=== PATIENT | female | born 1965 | race Caucasian/White ===

== ENCOUNTER 2019-08-31 22:18 | Emergency (ER) | payer OTHER ==
[2019-08-31] MEDS ORDERED: HYDROCODONE/APAP 10/325 TAB ONE (23:29)
[2019-08-31] MEDS ORDERED: DIAZEPAM 5 MG TABLET ONE (23:30)
[2019-08-31] MEDS ORDERED: KETOROLAC 30 MG/ML INJ ONE (23:30)
--- NOTE | 2019-09-01 00:28 | ER ---
Nurse's Notes [facility] Camila Name: Denny Burton Age: 54 yrs Sex: Female : 1965 Arrival Date: 08/31/2019 Time: 22:23 Bed X-Ray Private MD: Diagnosis: Fall due to bumping against object;Contusion of left hip;Low back pain;Bipolar disorder Presentation: 08/31 22:47 Presenting complaint: Patient states: in the process of moving, 2 days ago slipped and iw fell on left lower back, has had pain since then, can;t sleep. Transition of care: patient was not received from another setting of care. Onset of symptoms was August 29, 2019. Risk Assessment: Do you want to hurt yourself or someone else? Patient reports no desire to harm self or others. Initial Sepsis Screen: Does the patient meet any 2 criteria? No. Patient's initial sepsis screen is negative. Does the patient have a suspected source of infection? No. Patient's initial sepsis screen is negative. Care prior to arrival: None. 22:47 Method Of Arrival: Ambulatory iw 22:47 Acuity: BILL 4 iw Historical: - Allergies: 22:50 Codeine; iw 22:50 Sulfa (Sulfonamide Antibiotics); iw 22:50 Lyrica; iw 22:50 Methotrexate; iw 22:50 Remicade; iw - PMHx: 22:50 RA; Anxiety; Bipolar disorder; iw - PSHx: 22:50 Hysterectomy; Cholecystectomy; breast augmentation; keft ankle; dayanna shoulder; dayanna iw wrist; cervical fusion; - Immunization history:: Adult Immunizations up to date. - Coronavirus screen:: The patient has NOT traveled to [place], [place], or [place] in the past 14 days. Proceed with normal triage process as indicated. - Social history:: Smoking status: Patient denies any tobacco usage or history of. - Family history:: not pertinent. - Ebola Screening: : Patient negative for fever greater than or equal to 101.5 degrees Fahrenheit, and additional compatible Ebola Virus Disease symptoms Patient denies exposure to infectious person Patient denies travel to an Ebola-affected area in the 21 days before illness onset No symptoms or risks identified at this time. Screenin:54 Abuse screen: Denies threats or abuse. Denies injuries from another. Nutritional iw screening: No deficits noted. Tuberculosis screening: No symptoms or risk factors identified. Fall Risk Fall in past 12 months (25 points). Assessment: 22:53 General: Appears in no apparent distress. Behavior is calm, cooperative. Pain: iw Complains of pain in back Pain radiates to left leg. Neuro: Level of Consciousness is awake, alert, obeys commands, Oriented to person, place, time, situation, Moves all extremities. Full function. Cardiovascular: Patient's skin is warm and dry. Respiratory: Respiratory effort is even, unlabored, Respiratory pattern is regular. Derm: Skin is intact, is healthy with good turgor. Musculoskeletal: Range of motion: intact in all extremities. Vital Signs: 22:50 BP 105 / 68; Pulse 74; Resp 16; Temp 98.0; Pulse Ox 98% on R/A; Weight 58.97 kg; Height iw 5 ft. 2 in. (157.48 cm); Pain 8/10; 22:50 Body Mass Index 23.78 (58.97 kg, 157.48 cm) iw ED Course: 22:23 Patient arrived in ED. jg7 22:48 Triage completed. iw 22:50 Arm band placed on. iw 22:53 Cristina Fernandez, RN is Primary Nurse. iw 22:54 Patient has correct armband on for positive identification. iw 22:54 No provider procedures requiring assistance completed. Patient did not have IV access iw during this emergency room visit. 23:00 Lucien Wolf MD is Attending Physician. [facility] 09/01 00:18 Pelvis XRAY In Process Unspecified. EDMS 00:18 Lumbar Spine (3 Views) XRAY In Process Unspecified. EDMS 00:18 Hip Left 2 View XRAY In Process Unspecified. EDMS 00:28 Jorge Camara MD is Referral Physician. matthew Administered Medications: 08/31 23:35 Drug: [place] 10 mg-325 mg 1 tabs Route: PO; ls4 23:35 Drug: Valium 5 mg Route: PO; ls4 23:35 Drug: TORadol 60 mg Route: IM; Site: right deltoid; ls4 Outcome: 09/01 00:28 Discharge ordered by . matthew 01:03 Discharged to home ambulatory, with family. iw 01:03 Condition: good 01:03 Discharge instructions given to patient, Instructed on discharge instructions, follow up and referral plans. medication usage, Demonstrated understanding of instructions, follow-up care, medications, Prescriptions given X 2. 01:04 Patient left the ED. iw Signatures: Dispatcher [employer] EDLucien Dawson MD MD cha Williams, Irene, RN RN iw Stewart, Lisa, RN RN ls4 Celeste Bhandari
--- NOTE | 2019-09-01 00:28 | EDPHYS ---
Physician Documentation [facility] Camila Name: Denny Burton Age: 54 yrs Sex: Female : 1965 Arrival Date: 08/31/2019 Time: 22:23 Bed X-Ray Private MD: ED Physician Lucien Wolf HPI: 08/31 23:23 This 54 yrs old Female presents to ER via Ambulatory with complaints of Hip matthew Pain. 23:23 The patient or guardian reports decreased range of motion, pain. that occurred at an [facility] unknown site, sustained from a fall, There is no obvious deformity, The patient is able to self ambulate. The patient is able to bear their full body weight. The patient's discomfort radiates to the left lower back and left gluteus herbert. The complaints affect the buttocks, left femoral area and left hip. Onset: The symptoms/episode began/occurred 2 day(s) ago. Modifying factors: The symptoms are alleviated by remaining still, the symptoms are aggravated by any movement. Associated signs and symptoms: Loss of consciousness: the patient experienced no loss of consciousness, Pertinent positives: None. Severity of symptoms: At their worst the symptoms were mild, moderate, in the emergency department the symptoms are unchanged. The patient has experienced similar episodes in the past, a few times. Historical: - Allergies: 22:50 Codeine; iw 22:50 Sulfa (Sulfonamide Antibiotics); iw 22:50 Lyrica; iw 22:50 Methotrexate; iw 22:50 Remicade; iw - PMHx: 22:50 RA; Anxiety; Bipolar disorder; iw - PSHx: 22:50 Hysterectomy; Cholecystectomy; breast augmentation; keft ankle; dayanna shoulder; dayanna iw wrist; cervical fusion; - Immunization history:: Adult Immunizations up to date. - Coronavirus screen:: The patient has NOT traveled to [place], [place], or [place] in the past 14 days. Proceed with normal triage process as indicated. - Social history:: Smoking status: Patient denies any tobacco usage or history of. - Family history:: not pertinent. - Ebola Screening: : Patient negative for fever greater than or equal to 101.5 degrees Fahrenheit, and additional compatible Ebola Virus Disease symptoms Patient denies exposure to infectious person Patient denies travel to an Ebola-affected area in the 21 days before illness onset No symptoms or risks identified at this time. ROS: 23:23 Constitutional: Negative for fever, chills, and weight loss, Eyes: Negative for injury, matthew pain, redness, and discharge, ENT: Negative for injury, pain, and discharge, Neck: Negative for injury, pain, and swelling, Cardiovascular: Negative for chest pain, palpitations, and edema, Respiratory: Negative for shortness of breath, cough, wheezing, and pleuritic chest pain, Abdomen/GI: Negative for abdominal pain, nausea, vomiting, diarrhea, and constipation, : Negative for injury, bleeding, discharge, and swelling, Skin: Negative for injury, rash, and discoloration, Neuro: Negative for headache, weakness, numbness, tingling, and seizure, Psych: Negative for depression, anxiety, suicide ideation, homicidal ideation, and hallucinations, Allergy/Immunology: Negative for hives, rash, and allergies, Endocrine: Negative for neck swelling, polydipsia, polyuria, polyphagia, and marked weight changes, Hematologic/Lymphatic: Negative for swollen nodes, abnormal bleeding, and unusual bruising. 23:23 Back: Positive for decreased range of motion, pain at rest, pain with movement, of the lumbar area and left low back. Exam: 23:23 Constitutional: This is a well developed, well nourished patient who is awake, alert, matthew and in no acute distress. Head/Face: Normocephalic, atraumatic. Eyes: Pupils equal round and reactive to light, extra-ocular motions intact. Lids and lashes normal. Conjunctiva and sclera are non-icteric and not injected. Cornea within normal limits. Periorbital areas with no swelling, redness, or edema. ENT: Nares patent. No nasal discharge, no septal abnormalities noted. Tympanic membranes are normal and external auditory canals are clear. Oropharynx with no redness, swelling, or masses, exudates, or evidence of obstruction, uvula midline. Mucous membranes moist. Neck: Trachea midline, no thyromegaly or masses palpated, and no cervical lymphadenopathy. Supple, full range of motion without nuchal rigidity, or vertebral point tenderness. No Meningismus. Chest/axilla: Normal chest wall appearance and motion. Nontender with no deformity. No lesions are appreciated. Cardiovascular: Regular rate and rhythm with a normal S1 and S2. No gallops, murmurs, or rubs. Normal PMI, no JVD. No pulse deficits. Respiratory: Lungs have equal breath sounds bilaterally, clear to auscultation and percussion. No rales, rhonchi or wheezes noted. No increased work of breathing, no retractions or nasal flaring. Abdomen/GI: Soft, non-tender, with normal bowel sounds. No distension or tympany. No guarding or rebound. No evidence of tenderness throughout. Female : Normal external genitalia. Neuro: Awake and alert, GCS 15, oriented to person, place, time, and situation. Cranial nerves II-XII grossly intact. Motor strength 5/5 in all extremities. Sensory grossly intact. Cerebellar exam normal. Normal gait. Psych: Awake, alert, with orientation to person, place and time. Behavior, mood, and affect are within normal limits. 23:23 Musculoskeletal/extremity: Extremities: grossly normal except: noted in the left femoral area and left hip: decreased ROM, pain, DVT Exam: No signs of deep vein thrombosis. no pain, no swelling, no tenderness, negative Homans' sign noted on exam, no appreciated bluish discoloration, no erythema, no increased warmth. 23:23 Skin: Exam negative for Vital Signs: 22:50 BP 105 / 68; Pulse 74; Resp 16; Temp 98.0; Pulse Ox 98% on R/A; Weight 58.97 kg; Height iw 5 ft. 2 in. (157.48 cm); Pain 8/10; 22:50 Body Mass Index 23.78 (58.97 kg, 157.48 cm) MDM: 23:00 Patient medically screened. [facility] 23:30 Data reviewed: vital signs, nurses notes, lab test result(s), urinalysis, radiologic [facility] studies, plain films. 08/31 23:23 Order name: Pelvis XRAY [facility] 08/31 23:23 Order name: Lumbar Spine (3 Views) XRAY [facility] 08/31 23:23 Order name: Hip Left 2 View XRAY [facility] Administered Medications: 23:35 Drug: [place] 10 mg-325 mg 1 tabs Route: PO; ls4 23:35 Drug: Valium 5 mg Route: PO; ls4 23:35 Drug: TORadol 60 mg Route: IM; Site: right deltoid; ls4 Disposition: 09/01/19 00:28 Discharged to Home. Impression: Fall due to bumping against object, Contusion of left hip, Low back pain, Bipolar disorder. - Condition is Stable. - Discharge Instructions: Back Pain, Adult, Musculoskeletal Pain, Back Pain, Adult, [id number], Fall Prevention in the Home, [id number], Back Exercises, [id number]. - Prescriptions for Valium 5 mg Oral Tablet - take 1 tablet by ORAL route every 8 hours As needed; 20 tablet. Tramadol 50 mg Oral Tablet - take 2 tablet by ORAL route every 8 hours as needed; 26 tablet. Ibuprofen 600 mg Oral Tablet - take 1 tablet by ORAL route every 6 hours As needed take with food; 20 tablet. - Medication Reconciliation Form, Thank You Letter, Antibiotic Education, Prescription Opioid Use form. - Follow up: Private Physician; When: As needed; Reason: Recheck today's complaints, Continuance of care, Re-evaluation by your physician. Follow up: Jorge Camara MD; When: 2 - 3 days; Reason: Recheck today's complaints, Re-evaluation by your physician. - Problem is new. - Symptoms have improved. Signatures: Dispatcher [employer] EDME Lucien Wolf MD MD cha Williams, Irene, KAREN RN iw Norah Muro RN RN ls4 Corrections: (The following items were deleted from the chart) 09/01 01:04 00:28 09/01/2019 00:28 Discharged to Home. Impression: Fall due to bumping against iw object; Contusion of left hip; Low back pain; Bipolar disorder. Condition is Stable. Discharge Instructions: Back Pain, Adult, Musculoskeletal Pain, Back Pain, Adult, [id number], Fall Prevention in the Home, [id number]. Prescriptions for Valium 5 mg Oral Tablet - take 1 tablet by ORAL route every 8 hours As needed; 20 tablet, Tramadol 50 mg Oral Tablet - take 2 tablet by ORAL route every 8 hours as needed; 26 tablet, Ibuprofen 600 mg Oral Tablet - take 1 tablet by ORAL route every 6 hours As needed take with food; 20 tablet. and Forms are Medication Reconciliation Form, Thank You Letter, Antibiotic Education, Prescription Opioid Use. Follow up: Private Physician; When: As needed; Reason: Recheck today's complaints, Continuance of care, Re-evaluation by your physician. Follow up: Jorge Camara; When: 2 - 3 days; Reason: Recheck today's complaints, Re-evaluation by your physician. Problem is new. Symptoms have improved. matthew
[2019-09-01 04:15] VITALS: BP 105/68; TEMP 98; O2SAT 98
--- NOTE | 2019-09-01 11:31 | RAD REPORT ---
EXAM DESCRIPTION: RAD - Lumbar Spine 3 Views - 09/01/2019 12:15 am CLINICAL HISTORY: PAIN Radiculopathy COMPARISON: No comparisons FINDINGS: Vertebral body heights appear maintained. No compression fracture noted. Mild disc thinnin g with small posterior osteophytes seen throughout the lumbar levels. No spondylolysis or spondylolis thesis. Cholecystectomy clips. IMPRESSION: Mild lumbar spondylosis.
--- NOTE | 2019-09-01 11:33 | RAD REPORT ---
EXAM DESCRIPTION: RAD - Pelvis - 09/01/2019 12:14 am CLINICAL HISTORY: PAIN Pain in lower back and left hip. COMPARISON: None FINDINGS: AP pelvis and left hip-multiple projections are submitted Mild arthritic changes are present in both hips. No fracture, dislocation or AVN.
--- NOTE | 2019-09-03 13:02 | RAD REPORT ---
EXAM DESCRIPTION: RAD - Hip Left 2 View - 09/01/2019 12:15 am CLINICAL HISTORY: PAIN Pain in lower back and left hip. COMPARISON: None FINDINGS: AP pelvis and left hip-multiple projections are submitted Mild arthritic changes are present in both hips. No fracture, dislocation or AVN.
== END 2019-09-01 01:04 | disposition home or self-care (01) ==
LOC: ER 22:18
DX: S70.02XA Contusion of left hip, initial encounter (principal); W18.00XA Striking against unspecified object with subsequent fall, initial encounter; Y93.9 Activity, unspecified; Y92.9 Unspecified place or not applicable; M54.5 Low back pain; Z88.6 Allergy status to analgesic agent; Z88.2 Allergy status to sulfonamides; Z88.8 Allergy status to other drugs, medicaments and biological substances
CPT/HCPCS: 72100; 72170; 96372; 99283

== ENCOUNTER 2019-11-15 21:24 | Emergency (ER) | payer BC, OTHER ==
[2019-11-15] MEDS ORDERED: HYDROCODONE/APAP 10/325 TAB ONE (22:14)
[2019-11-15] MEDS ORDERED: DIAZEPAM 5 MG TABLET ONE (22:14)
--- NOTE | 2019-11-15 23:02 | ER ---
Nurse's Notes [facility] Name: Denny Burton Age: 54 yrs Sex: Female : 1965 Arrival Date: 11/15/2019 Time: 21:30 Bed 19 Private MD: out of town, doctor Diagnosis: Low back pain Presentation: 11/14 21:46 Chief complaint: Patient states: "my back pain is flaring up to the point that my jd3 normal medications are nit helping. I have tramadol and naproxen and they are just aren't cutting it. It has gotten to the point I lay in bed and just cry." pt reports seeing a pain management doctor at one point and has had multiple back ablations and other surgeries. Coronavirus screen: Proceed with normal triage. Ebola Screen: Patient negative for fever greater than or equal to 101.5 degrees Fahrenheit, and additional compatible Ebola Virus Disease symptoms. Initial Sepsis Screen: Does the patient meet any 2 criteria? No. Patient's initial sepsis screen is negative. Does the patient have a suspected source of infection? No. Patient's initial sepsis screen is negative. Risk Assessment: Do you want to hurt yourself or someone else? Patient reports no desire to harm self or others. Onset of symptoms was November 15, 2019. 21:46 Method Of Arrival: Wheelchair jd3 21:46 Acuity: BILL 3 jd3 Historical: - Allergies: 21:56 Codeine; jd3 21:56 Lyrica; jd3 21:56 Methotrexate; jd3 21:56 Remicade; jd3 21:56 Sulfa (Sulfonamide Antibiotics); jd3 - Home Meds: 21:56 Tramadol Oral [Active]; naproxen Oral [Active]; Valium Oral [Active]; biotin oral oral jd3 [Active]; Magnesium Oxide Oral [Active]; Plaquenil Oral [Active]; Methotrexate Sodium Oral [Active]; - PMHx: 21:56 Anxiety; Bipolar disorder; RA; osteo arthritus; Lupus; jd3 - PSHx: 21:56 Cholecystectomy; Hysterectomy; breast augmentation; keft ankle; dayanna shoulder; dayanna jd3 wrist; cervical fusion; backsx; - Immunization history:: Adult Immunizations up to date. - Social history:: Smoking status: Patient/guardian denies using tobacco, the patient reports quitting approximately 5 years ago. Screenin:16 Abuse screen: Denies threats or abuse. Denies injuries from another. Nutritional rr5 screening: No deficits noted. Tuberculosis screening: No symptoms or risk factors identified. Fall Risk None identified. Total Dubois Fall Scale indicates No Risk (0-24 pts). Assessment: 21:50 General: Appears in no apparent distress. uncomfortable, Behavior is calm, cooperative, rr5 appropriate for age. 21:50 Pain: Complains of pain in left low back and right low back Pain currently is 10 out of rr5 10 on a pain scale. Quality of pain is described as spasm Pain began gradually, Is intermittent. Neuro: Level of Consciousness is awake, alert, obeys commands, Oriented to person, place, time, situation, Appropriate for age. Cardiovascular: Capillary refill < 3 seconds Patient's skin is warm and dry. Respiratory: Airway is patent Respiratory effort is even, unlabored, Respiratory pattern is regular, symmetrical. GI: No signs and/or symptoms were reported involving the gastrointestinal system. : No signs and/or symptoms were reported regarding the genitourinary system. EENT: No signs and/or symptoms were reported regarding the EENT system. Derm: Skin is intact, is healthy with good turgor, Skin temperature is warm. Musculoskeletal: Capillary refill < 3 seconds, Reports pain in left low back and right low back. Vital Signs: 21:56 BP 107 / 76; Pulse 85; Resp 17 S; Temp 98.9(TE); Pulse Ox 97% on R/A; Weight 60.78 kg jd3 (R); Height 5 ft. 3 in. (160.02 cm) (R); Pain 10/10; 23:26 BP 116 / 71; Pulse 77; Resp 18; Temp 98.1; Pulse Ox 98% ; Pain 0/10; jv1 21:56 Body Mass Index 23.74 (60.78 kg, 160.02 cm) jd3 ED Course: 21:30 Patient arrived in ED. mr 21:30 out of town, doctor is Private Physician. mr 21:49 Triage completed. jd3 21:56 Jean Collins PA is PHCP. [facility] 21:56 Wiliam Avitia MD is Attending Physician. [facility] 21:56 Arm band placed on. jd3 22:06 Christoph Flores, RN is Primary Nurse. rr5 22:16 Patient has correct armband on for positive identification. Bed in low position. Call rr5 light in reach. 23:29 No provider procedures requiring assistance completed. Patient did not have IV access jv1 during this emergency room visit. Administered Medications: 22:12 Drug: [place] 10 mg-325 mg 1 tabs {Note: rass 0.} Route: PO; rr5 23:31 Follow up: Response: No adverse reaction jv1 23:31 Follow up: Response: No adverse reaction; Pain is decreased; RASS: Alert and Calm (0) jv1 22:13 Drug: Valium 5 mg Route: PO; rr5 23:31 Follow up: Response: No adverse reaction jv1 Outcome: 23:02 Discharge ordered by . nadege 23:30 Discharged to home ambulatory. jv1 23:30 Condition: improved 23:30 Discharge instructions given to patient, Instructed on discharge instructions, follow up and referral plans. medication usage, Demonstrated understanding of instructions, follow-up care, medications, Prescriptions given X 2. 23:32 Patient left the ED. jv1 Signatures: Jean Collins PA PA jmm [place], Danyelle Hess, KAREN Gabriel RN jd3 Dorie Ibarra RN RN jv1 Christoph Flores, RN RN rr5
--- NOTE | 2019-11-15 23:02 | EDPHYS ---
Physician Documentation [facility] Name: Denny Burton Age: 54 yrs Sex: Female : 1965 Arrival Date: 11/15/2019 Time: 21:30 Bed 19 Private MD: out of town, doctor ED Physician Wiliam Avitia HPI: 11/14 22:01 This 54 yrs old Female presents to ER via Wheelchair with complaints of Back jmm Pain. 22:01 The patient presents with pain that is chronic. Onset: The symptoms/episode jmm began/occurred gradually. The pain radiates. Associated signs and symptoms: Pertinent negatives: abdominal pain, chest pain, constipation, dysuria, fever, headache, hematuria, incontinence, nausea, numbness, tingling, urinary retention, vomiting, weakness. The problem was sustained Patient has recent procedure. Denies fever. Denies bowel or bladder issues. Modifying factors: The patient symptoms are alleviated by nothing, the patient symptoms are aggravated by any movement. Historical: - Allergies: 21:56 Codeine; jd3 21:56 Lyrica; jd3 21:56 Methotrexate; jd3 21:56 Remicade; jd3 21:56 Sulfa (Sulfonamide Antibiotics); jd3 - Home Meds: 21:56 Tramadol Oral [Active]; naproxen Oral [Active]; Valium Oral [Active]; biotin oral oral jd3 [Active]; Magnesium Oxide Oral [Active]; Plaquenil Oral [Active]; Methotrexate Sodium Oral [Active]; - PMHx: 21:56 Anxiety; Bipolar disorder; RA; osteo arthritus; Lupus; jd3 - PSHx: 21:56 Cholecystectomy; Hysterectomy; breast augmentation; keft ankle; dayanna shoulder; dayanna jd3 wrist; cervical fusion; backsx; - Immunization history:: Adult Immunizations up to date. - Social history:: Smoking status: Patient/guardian denies using tobacco, the patient reports quitting approximately 5 years ago. ROS: 22:01 Constitutional: Negative for fever, chills, and weight loss, Cardiovascular: Negative jmm for chest pain, palpitations, and edema, Respiratory: Negative for shortness of breath, cough, wheezing, and pleuritic chest pain. 22:01 Back: Positive for pain with movement. 22:01 All other systems are negative. Exam: 22:01 Head/Face: atraumatic. Eyes: EOMI, no conjunctival erythema appreciated ENT: Moist jm Mucus Membranes Neck: Trachea midline, Supple Chest/axilla: Normal chest wall appearance and motion. Cardiovascular: Regular rate and rhythm. No edema appreciated Respiratory: Normal respirations, no respiratory distress appreciated Abdomen/GI: Non distended, soft 22:01 Constitutional: The patient appears alert, awake, uncomfortable. 22:01 Back: pain, that is moderate, of the left low back and right low back. 22:01 Musculoskeletal/extremity: ROM: intact in all extremities. 22:01 Neuro: extensor hallucis intact. 22:01 Psych: Behavior/mood is pleasant, cooperative. Vital Signs: 21:56 BP 107 / 76; Pulse 85; Resp 17 S; Temp 98.9(TE); Pulse Ox 97% on R/A; Weight 60.78 kg jd3 (R); Height 5 ft. 3 in. (160.02 cm) (R); Pain 10/10; 23:26 BP 116 / 71; Pulse 77; Resp 18; Temp 98.1; Pulse Ox 98% ; Pain 0/10; jv1 21:56 Body Mass Index 23.74 (60.78 kg, 160.02 cm) jd3 MDM: 22:01 Patient medically screened. [facility] 23:01 Data reviewed: vital signs, nurses notes. Counseling: I had a detailed discussion with nadege the patient and/or guardian regarding: the historical points, exam findings, and any diagnostic results supporting the discharge/admit diagnosis, the need for outpatient follow up, to return to the emergency department if symptoms worsen or persist or if there are any questions or concerns that arise at home. ED course: I do not suspect cord compression, cauda equina. Patient advised to follow up with pcp for reevaluation. Patient is otherwise given strict return precautions. Patient understood and agrees with the plan of care. . Administered Medications: 22:12 Drug: Treynor 10 mg-325 mg 1 tabs {Note: rass 0.} Route: PO; rr5 23:31 Follow up: Response: No adverse reaction jv1 23:31 Follow up: Response: No adverse reaction; Pain is decreased; RASS: Alert and Calm (0) jv1 22:13 Drug: Valium 5 mg Route: PO; rr5 23:31 Follow up: Response: No adverse reaction jv1 Disposition: 11/15 06:51 Co-signature as Attending Physician, Wiliam Avitia MD. ma2 Disposition: 11/15/19 23:02 Discharged to Home. Impression: Low back pain. - Condition is Stable. - Discharge Instructions: Back Pain, Adult. - Prescriptions for Prednisone 20 mg Oral Tablet - take 3 tablet by ORAL route once daily for 5 days; 15 tablet. Zanaflex 4 mg Oral Tablet - take 1 tablet by ORAL route every 8 hours As needed; 20 tablet. - Medication Reconciliation Form, Thank You Letter, Antibiotic Education, Prescription Opioid Use form. - Follow up: Private Physician; When: 2 - 3 days; Reason: Recheck today's complaints, Continuance of care, Re-evaluation by your physician. Signatures: Jean Collins PA PA jmm Davies, Jonathon, KAREN RN jd3 Wiliam Avitia MD MD ma2 Dorie Ibarra RN RN jv1 Christoph Flores RN RN rr5 Corrections: (The following items were deleted from the chart) 11/14 23:32 23:02 11/15/2019 23:02 Discharged to Home. Impression: Low back pain. Condition is jv1 Stable. Forms are Medication Reconciliation Form, Thank You Letter, Antibiotic Education, Prescription Opioid Use. Follow up: Private Physician; When: 2 - 3 days; Reason: Recheck today's complaints, Continuance of care, Re-evaluation by your physician. nadege
[2019-11-15 23:38] VITALS: BP 116/71; TEMP 98.1; O2SAT 98
== END 2019-11-15 23:32 | disposition home or self-care (01) ==
LOC: ER 21:24
DX: M54.5 Low back pain (principal); F31.9 Bipolar disorder, unspecified; Z88.2 Allergy status to sulfonamides; Z88.5 Allergy status to narcotic agent; Z88.8 Allergy status to other drugs, medicaments and biological substances
CPT/HCPCS: 99283

== ENCOUNTER 2019-11-29 12:06 | Emergency (ER) | payer BC ==
[2019-11-29] MEDS ORDERED: FENTANYL CITR 100 MCG/2 ML ONE (12:44)
[2019-11-29 12:48] LABS: Basophils % 0.8 % (0-1.3); Hematocrit 40.7 % (36.0-45.0); Lymphocytes % 38.5 % (15.3-44.8); MPV 7.5 fL (7.6-11.3); RBC Red Blood Cell Count 4.71 M/uL (3.86-4.86)
[2019-11-29 13:06] LABS: BUN Blood Urea Nitrogen 18 mg/dL (7-18); Bicarbonate 27 mmol/L (21-32); Glucose Level 94 mg/dL (74-106); Sodium Level 141 mmol/L (136-145)
[2019-11-29 13:09] LABS: C-Reactive Protein < 2.90 mg/L (<3.00)
--- NOTE | 2019-11-29 14:05 | RAD REPORT ---
EXAM DESCRIPTION: US - Extrem Venous W Compress [place] - 11/29/2019 1:53 pm CLINICAL HISTORY: Pain;Swelling COMPARISON: None. TECHNIQUE: Real-time sonographic evaluation of the left lower extremity deep venous system was perfo rmed. FINDINGS: Normal compressibility, flow augmentation, phasic flow and spontaneous flow are identified in the left lower extremity common femoral, superficial femoral, popliteal and posterior tibial vein s. No intraluminal filling defects seen. A small palpable mass in the left calf approximately 15 mm in size is most likely a small lipoma. Thi s is in the subcutaneous fatty layer. IMPRESSION: No DVT in the left lower extremity.
--- NOTE | 2019-11-29 14:07 | ER ---
Nurse's Notes [facility] Name: Denny Burton Age: 54 yrs Sex: Female : 1965 Arrival Date: 11/29/2019 Time: 12:08 Bed 7 Private MD: Diagnosis: Pain in left leg;Pain in right leg Presentation: 11/28 12:09 Chief complaint: Patient states: pain behind both legs that began 2 days ago. Pt also aa5 reports swelling behind right knee and left foot. Pt also reports right groin pain. 12:09 Coronavirus screen: Proceed with normal triage. Patient denies a cough. Patient denies aa5 shortness of breath or difficulty breathing. Patient denies measured and/or subjective temperature greater than 100.4F prior to today's visit. Patient denies travel on a cruise ship or to a country the [facility] currently lists as an affected area. Patient denies contact with known and/or suspected case of COVID-19. Ebola Screen: Patient negative for fever greater than or equal to 101.5 degrees Fahrenheit, and additional compatible Ebola Virus Disease symptoms. Initial Sepsis Screen: Does the patient meet any 2 criteria? No. Patient's initial sepsis screen is negative. Does the patient have a suspected source of infection? No. Patient's initial sepsis screen is negative. Risk Assessment: Do you want to hurt yourself or someone else? Patient reports no desire to harm self or others. Onset of symptoms was November 2019. 12:09 Acuity: BILL 3 aa5 12:09 Method Of Arrival: Ambulatory aa5 Triage Assessment: 12:20 General: Appears in no apparent distress. comfortable, Behavior is cooperative, bp appropriate for age, anxious. Pain: Complains of pain in groin and right leg. EENT: No deficits noted. Neuro: No deficits noted. Cardiovascular: No deficits noted. Respiratory: No deficits noted. GI: No signs and/or symptoms were reported involving the gastrointestinal system. : No signs and/or symptoms were reported regarding the genitourinary system. Derm: No deficits noted. Musculoskeletal: No deficits noted. Historical: - Allergies: 12:18 Codeine; aa5 12:18 Lyrica; aa5 12:18 Methotrexate; aa5 12:18 Remicade; aa5 12:18 Sulfa (Sulfonamide Antibiotics); aa5 - PMHx: 12:18 Anxiety; Bipolar disorder; Lupus; RA; osteoarthritis; aa5 - PSHx: 12:18 Cholecystectomy; Hysterectomy; breast augmentation; keft ankle; dayanna shoulder; dayanna aa5 wrist; cervical fusion; backsx; - Immunization history:: Adult Immunizations up to date. - Social history:: Smoking status: Patient denies any tobacco usage or history of. Screenin:21 Abuse screen: Denies threats or abuse. Denies injuries from another. Nutritional bp screening: No deficits noted. Tuberculosis screening: No symptoms or risk factors identified. Fall Risk None identified. Assessment: 12:21 General: SEE TRIAGE NOTE. bp 12:40 Reassessment: U/S AT B/S. bp 13:46 Reassessment: ALL CURRENT ORDERS COMPLETED. PT AMBULATING TO BATHROOM WITHOUT bp DIFFICULTY. DISPO PENDING. 14:10 Reassessment: PT D/C HOME AMBULATORY, DX WITH PAIN OF UNKNOWN ORIGIN. bp Vital Signs: 12:09 BP 123 / 76; Pulse 81; Resp 16 S; Temp 97.8(TE); Pulse Ox 99% on R/A; Pain 9/10; aa5 12:46 BP 122 / 79; Pulse 71; Resp 16; Pulse Ox 98% ; bp 13:45 BP 119 / 73; Pulse 81; Resp 16; Pulse Ox 98% ; bp 14:10 BP 100 / 71; Pulse 72; Resp 17; Temp 98; Pulse Ox 98% ; bp ED Course: 12:08 Patient arrived in ED. as 12:09 Arm band placed on. aa5 12:10 Danny Waite, KAREN is Primary Nurse. bp 12:13 Hemal Robb PA is PHCP. jr8 12:13 Ronny Crabtree MD is Attending Physician. jr8 12:17 Triage completed. aa5 12:21 Patient has correct armband on for positive identification. Bed in low position. Call bp light in reach. Side rails up X 1. Side rails up X2. 12:34 Initial lab(s) drawn, by me, sent to lab. Inserted saline lock: 22 gauge in right kj1 antecubital area, using aseptic technique. Blood collected. 12:44 US Extremity Venous W Compression Dayanna Sent. bp 12:56 US Extremity Venous W Compression Dayanna In Process Unspecified. EDMS 14:10 No provider procedures requiring assistance completed. IV discontinued, intact, bp bleeding controlled, No redness/swelling at site. Pressure dressing applied. Administered Medications: 12:40 Drug: fentaNYL (PF) 50 mcg Route: IVP; Site: right antecubital; bp 13:45 Follow up: Response: Pain is decreased bp Outcome: 14:06 Discharge ordered by MD. cardona 14:10 Discharged to home ambulatory. bp 14:10 Condition: stable 14:10 Discharge instructions given to patient, Instructed on discharge instructions, follow up and referral plans. Demonstrated understanding of instructions, follow-up care. 14:11 Patient left the ED. bp Signatures: Dispatcher [employer] EDYuridia Block Audri, RN RN aa5 Hemal Robb PA PA jr8 Danny Waite RN RN bp Ruthie Dillon kj1
--- NOTE | 2019-11-29 14:07 | EDPHYS ---
Physician Documentation [facility] Name: Denny Burton Age: 54 yrs Sex: Female : 1965 Arrival Date: 11/29/2019 Time: 12:08 Bed 7 Private MD: ED Physician Ronny Crabtree HPI: 11/28 13:11 This 54 yrs old Female presents to ER via Ambulatory with complaints of Leg jr8 Pain, Groin Pain, Leg Swelling. 13:11 Onset: The symptoms/episode began/occurred acutely, yesterday. Modifying factors: The jr8 symptoms are alleviated by nothing. the symptoms are aggravated by movement. Associated signs and symptoms: The patient has no apparent associated signs or symptoms. Severity of symptoms: At their worst the symptoms were moderate, in the emergency department the symptoms are unchanged. The patient has not experienced similar symptoms in the past. The patient has not recently seen a physician. Patient stated that she noticed swelling to left dorsal foot along with having calf pain and posterior knee pain bilaterally since yesterday. Today with right sided groin pain. History of Rheumatoid arthritis and lumbar radiculopathy. Denies fevers or other symptoms. Currently on biologic medications . Historical: - Allergies: 12:18 Codeine; aa5 12:18 Lyrica; aa5 12:18 Methotrexate; aa5 12:18 Remicade; aa5 12:18 Sulfa (Sulfonamide Antibiotics); aa5 - PMHx: 12:18 Anxiety; Bipolar disorder; Lupus; RA; osteoarthritis; aa5 - PSHx: 12:18 Cholecystectomy; Hysterectomy; breast augmentation; keft ankle; dayanna shoulder; dayanna aa5 wrist; cervical fusion; backsx; - Immunization history:: Adult Immunizations up to date. - Social history:: Smoking status: Patient denies any tobacco usage or history of. ROS: 13:11 Eyes: Negative for injury, pain, redness, and discharge, ENT: Negative for injury, jr8 pain, and discharge, Neck: Negative for injury, pain, and swelling, Cardiovascular: Negative for chest pain, palpitations, and edema, Respiratory: Negative for shortness of breath, cough, wheezing, and pleuritic chest pain, Abdomen/GI: Negative for abdominal pain, nausea, vomiting, diarrhea, and constipation, Back: Negative for injury and pain, Skin: Negative for injury, rash, and discoloration, Neuro: Negative for headache, weakness, numbness, tingling, and seizure. 13:11 MS/extremity: Positive for pain, swelling, tenderness, of the right leg and left leg. Exam: 13:11 Eyes: Pupils equal round and reactive to light, extra-ocular motions intact. Lids and jr8 lashes normal. Conjunctiva and sclera are non-icteric and not injected. Cornea within normal limits. Periorbital areas with no swelling, redness, or edema. ENT: Nares patent. No nasal discharge, no septal abnormalities noted. Tympanic membranes are normal and external auditory canals are clear. Oropharynx with no redness, swelling, or masses, exudates, or evidence of obstruction, uvula midline. Mucous membranes moist. Neck: Trachea midline, no thyromegaly or masses palpated, and no cervical lymphadenopathy. Supple, full range of motion without nuchal rigidity, or vertebral point tenderness. No Meningismus. Cardiovascular: Regular rate and rhythm with a normal S1 and S2. No gallops, murmurs, or rubs. Normal PMI, no JVD. No pulse deficits. Respiratory: Lungs have equal breath sounds bilaterally, clear to auscultation and percussion. No rales, rhonchi or wheezes noted. No increased work of breathing, no retractions or nasal flaring. Abdomen/GI: Soft, non-tender, with normal bowel sounds. No distension or tympany. No guarding or rebound. No evidence of tenderness throughout. Back: No spinal tenderness. No costovertebral tenderness. Full range of motion. Skin: Warm, dry with normal turgor. Normal color with no rashes, no lesions, and no evidence of cellulitis. Neuro: Awake and alert, GCS 15, oriented to person, place, time, and situation. Cranial nerves II-XII grossly intact. Motor strength 5/5 in all extremities. Sensory grossly intact. Cerebellar exam normal. Normal gait. 13:11 Musculoskeletal/extremity: ROM: intact in all extremities, Circulation is intact in all extremities. Pulses: noted to be 2+ in the right radial artery, right femoral artery, right popliteal artery, right posterior tibial artery, right dorsalis pedis artery, left radial artery, left femoral artery, left popliteal artery, left posterior tibial artery and left dorsalis pedis artery, Perfusion: the patient is normally perfused throughout, pink, warm, Perfusion: the extremity is normally perfused throughout, pink, warm, Calf tenderness, that is mild, bilaterally, Sensation intact. mild swelling noted to dorsal left foot without bruising or discoloration . Vital Signs: 12:09 BP 123 / 76; Pulse 81; Resp 16 S; Temp 97.8(TE); Pulse Ox 99% on R/A; Pain 9/10; aa5 12:46 BP 122 / 79; Pulse 71; Resp 16; Pulse Ox 98% ; bp 13:45 BP 119 / 73; Pulse 81; Resp 16; Pulse Ox 98% ; bp 14:10 BP 100 / 71; Pulse 72; Resp 17; Temp 98; Pulse Ox 98% ; bp MDM: 12:13 Patient medically screened. jr8 14:04 Data reviewed: vital signs, nurses notes, lab test result(s), radiologic studies, jr8 ultrasound. Data interpreted: Pulse oximetry: on room air is 98 %. Interpretation: normal. 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 Response to treatment: the patient's symptoms have markedly improved after treatment. ED course: Discussed with patient that her DVT study was negative bilaterally. No acute elevation in inflammatory markers. Did discussed with her that Orencia for her RA could be cause. Known adverse affect of medicine is extremity pain. That she needs to f/u with rheumatology for this. Patient good with this and knows to come back if worse . 11/28 12:25 Order name: CBC with Diff; Complete Time: 13:14 11/28 12:25 Order name: Basic Metabolic Panel; Complete Time: 13:10 11/28 12:25 Order name: C-Reactive Protein; Complete Time: 13:11/28 12:25 Order name: Westergren Sedrate; Complete Time: 13:14 11/28 12:25 Order name: US Extremity Venous W Compression Dayanna; Complete Time: 14:07 11/28 12:25 Order name: IV; Complete Time: 12:41 jr8 Administered Medications: 12:40 Drug: fentaNYL (PF) 50 mcg Route: IVP; Site: right antecubital; bp 13:45 Follow up: Response: Pain is decreased bp Disposition: 16:38 Co-signature as Attending Physician, Ronny Crabtree MD I agree with the assessment and kdr plan of care. Disposition: 11/29/19 14:06 Discharged to Home. Impression: Pain in left leg, Pain in right leg. - Condition is Stable. - Discharge Instructions: Pain Without a Known Cause. - Medication Reconciliation Form, Thank You Letter, Antibiotic Education, Prescription Opioid Use form. - Follow up: Private Physician; When: 5 - 6 days; Reason: Recheck today's complaints, Continuance of care, Re-evaluation by your physician. - Problem is new. - Symptoms have improved. - Notes: Continue her antiinflammatory and pain medications Signatures: Dispatcher [employer] EDMS Ronny Crabtree MD MD [facility] Alisha Flood RN RN aa5 Hemal Robb PA PA jr8 Danny Waite, KAREN RN bp Corrections: (The following items were deleted from the chart) 14:11 14:06 11/29/2019 14:06 Discharged to Home. Impression: Pain in left leg; Pain in right bp leg. Condition is Stable. Forms are Medication Reconciliation Form, Thank You Letter, Antibiotic Education, Prescription Opioid Use. Follow up: Private Physician; When: 5 - 6 days; Reason: Recheck today's complaints, Continuance of care, Re-evaluation by your physician. Problem is new. Symptoms have improved. jr8
[2019-11-29 14:20] VITALS: O2SAT 98
[2019-11-29 14:25] VITALS: BP 100/71; TEMP 98
== END 2019-11-29 14:11 | disposition home or self-care (01) ==
LOC: ER 12:06
DX: M79.605 Pain in left leg (principal); M79.604 Pain in right leg; Z98.82 Breast implant status; Z88.2 Allergy status to sulfonamides; Z88.5 Allergy status to narcotic agent; Z88.8 Allergy status to other drugs, medicaments and biological substances
CPT/HCPCS: 36415; 80048; 85025; 85652; 86140; 93970; 96374; 99284; J3010

== ENCOUNTER 2020-04-04 23:03 | Emergency (ER) | payer BC, OTHER ==
--- NOTE | 2020-04-05 01:43 | EDPHYS ---
Physician Documentation [facility] Name: Denny Burton Age: 55 yrs Sex: Female : 1965 Arrival Date: 04/04/2020 Time: 23:05 Bed 7 Private MD: RADHA Physician Lucien Wolf HPI: 04/04 23:48 This 55 yrs old Female presents to ER via Ambulatory with complaints of Ankle kb Swelling. 23:48 The patient presents with pain, swelling. The complaints affect the left ankle. Onset: kb The symptoms/episode began/occurred 3 day(s) ago. Context: The problem was sustained at home, resulted from an unknown cause, The mechanism of injury is unknown. The patient can fully bear weight on the affected extremity. the patient is able to ambulate. Associated signs and symptoms: Pertinent positives: calf tenderness, swelling, Pertinent negatives: fever, nausea, numbness, rash, tingling, vomiting, warmth, weakness. Modifying factors: The symptoms are alleviated by nothing, the symptoms are aggravated by nothing. Severity of symptoms: At their worst the symptoms were moderate, in the emergency department the symptoms are unchanged. The patient has experienced similar episodes in the past, a few times. The patient has not recently seen a physician. Pt reports left ankle and foot swelling that started 3 days ago. States she has tightness from calf down. Denies injury or trauma. States swelling decreases with elevation of extremity, but doesn't completely resolve. . Historical: - Allergies: 23:50 Codeine; bb 23:50 Methotrexate; bb 23:50 Remicade; bb 23:50 Sulfa (Sulfonamide Antibiotics); bb 23:50 Lyrica; bb - Home Meds: 23:50 Valium 5 mg oral tab 1 tab daily [Active]; cyclobenzaprine 10 mg Oral tab 1 tab 2 times bb per day [Active]; Sumatriptan Sub-Q [Active]; Nucynta 50 mg oral tab 1 tab twice a day [Active]; Lyrica Oral [Active]; estradiol transdermal transdermal [Active]; pregabalin 75 mg Oral 2 times per day [Active]; naproxen 500 mg oral tab 1 tab every 12 hours [Active]; quetiapine oral oral [Active]; mirtazapine 15 mg Oral TbDL 1 tab three times a day [Active]; hydroxychloroquine 200 mg oral tab 1 tab 2 times per day [Active]; omeprazole 20 mg Oral cpDR 1 cap once daily [Active]; folic acid 800 mcg Oral tab 2 tab once daily [Active]; Restasis 0.05 % ophthalmic dpet 1 drop 2 times per day [Active]; hydrocodone-acetaminophen 7.5-325 mg Oral tab 1 tab every 6 hours [Active]; - PMHx: 23:50 Anxiety; Bipolar disorder; Lupus; osteo arthritus; RA; bb - PSHx: 23:50 Cholecystectomy; Hysterectomy; breast augmentation; left ankle; Tonsillectomy; back bb surgery; - Immunization history:: Adult Immunizations up to date. - Social history:: Smoking status: Patient/guardian denies using tobacco, but has a distant history of tobacco abuse. ROS: 23:45 Constitutional: Negative for fever, chills, and weight loss, Cardiovascular: Negative kb for chest pain, palpitations, and edema, Respiratory: Negative for shortness of breath, cough, wheezing, and pleuritic chest pain, Abdomen/GI: Negative for abdominal pain, nausea, vomiting, diarrhea, and constipation, Skin: Negative for injury, rash, and discoloration, Neuro: Negative for headache, weakness, numbness, tingling, and seizure. 23:45 MS/extremity: Positive for swelling, tenderness, of the anterior aspect of left ankle and dorsum of left foot. Exam: 23:45 Constitutional: This is a well developed, well nourished patient who is awake, alert, kb and in no acute distress. Head/Face: Normocephalic, atraumatic. Chest/axilla: Normal chest wall appearance and motion. Nontender with no deformity. No lesions are appreciated. Cardiovascular: Regular rate and rhythm with a normal S1 and S2. No gallops, murmurs, or rubs. Normal PMI, no JVD. No pulse deficits. Respiratory: Lungs have equal breath sounds bilaterally, clear to auscultation and percussion. No rales, rhonchi or wheezes noted. No increased work of breathing, no retractions or nasal flaring. Abdomen/GI: Soft, non-tender, with normal bowel sounds. No distension or tympany. No guarding or rebound. No evidence of tenderness throughout. MS/ Extremity: Pulses equal, no cyanosis. Neurovascular intact. Full, normal range of motion. Neuro: Awake and alert, GCS 15, oriented to person, place, time, and situation. Cranial nerves II-XII grossly intact. Motor strength 5/5 in all extremities. Sensory grossly intact. Cerebellar exam normal. Normal gait. 23:45 Skin: 23:45 Skin: Appearance: normal except for affected area, swelling, noted on the dorsum of left foot and anterior aspect of left ankle, that are moderate. Vital Signs: 23:38 BP 121 / 66; Pulse 82; Resp 16 S; Temp 98.6(O); Pulse Ox 95% on R/A; Weight 66.68 kg bb (R); Height 5 ft. 3 in. (160.02 cm) (R); Pain 01/15; 04/05 01:30 BP 107 / 70; Pulse 70; Resp 18; Pulse Ox 98% ; ea 04/04 23:38 Body Mass Index 26.04 (66.68 kg, 160.02 cm) bb MDM: 04/04 23:18 Patient medically screened. kb 23:44 Data reviewed: vital signs, nurses notes. Data interpreted: Pulse oximetry: on room air kb is 95 %. Interpretation: normal. 04/05 01:38 Counseling: I had a detailed discussion with the patient and/or guardian regarding: the kb historical points, exam findings, and any diagnostic results supporting the discharge/admit diagnosis, radiology results, the need for outpatient follow up, a family practitioner, to return to the emergency department if symptoms worsen or persist or if there are any questions or concerns that arise at home. 04/04 23:25 Order name: US Extremity Venous Unilateral Ltd kb 04/04 23:25 Order name: Chest Single View XRAY kb 04/05 00:15 Order name: Ankle Left 3 View XRAY kb Administered Medications: No medications were administered Disposition: 04/05/20 01:42 Discharged to Home. Impression: Edema, unspecified - left ankle. - Condition is Stable. - Discharge Instructions: Peripheral Edema. - Medication Reconciliation Form, Thank You Letter, Antibiotic Education, Prescription Opioid Use form. - Follow up: Emergency Department; When: As needed; Reason: Worsening of condition. Follow up: Private Physician; When: 2 - 3 days; Reason: Recheck today's complaints, Continuance of care, Re-evaluation by your physician. Addendum: 04/06/2020 08:47 Co-signature as Attending Physician, Lucien Wolf MD I agree with the assessment and c guevara plan of care. Signatures: Dispatcher [employer] EDHalina Johnson, MEDICAL DEVICE ENGINEER-C MEDICAL DEVICE ENGINEER-CkLucien Kaiser MD MD cha Ballard, Brenda, RN RN bb Rosy Banks RN RN ea Corrections: (The following items were deleted from the chart) 04/05 02:24 01:42 04/05/2020 01:42 Discharged to Home. Impression: Edema, unspecified - left ankle. ea Condition is Stable. Discharge Instructions: Peripheral Edema. Forms are Medication Reconciliation Form, Thank You Letter, Antibiotic Education, Prescription Opioid Use. Follow up: Emergency Department; When: As needed; Reason: Worsening of condition. Follow up: Private Physician; When: 2 - 3 days; Reason: Recheck today's complaints, Continuance of care, Re-evaluation by your physician. kb
--- NOTE | 2020-04-05 01:43 | ER ---
Nurse's Notes [facility] Name: Denny Burton Age: 55 yrs Sex: Female : 1965 Arrival Date: 04/04/2020 Time: 23:05 Bed 7 Private MD: Diagnosis: Edema, unspecified-left ankle Presentation: 04/04 23:38 Chief complaint: Patient states: she has had ankle swelling and pain in her left ankle bb for 3 days denies injury. Coronavirus screen: At this time, the client does not indicate any symptoms associated with coronavirus-19. Ebola Screen: No symptoms or risks identified at this time. Initial Sepsis Screen: Does the patient meet any 2 criteria? No. Patient's initial sepsis screen is negative. Does the patient have a suspected source of infection? No. Patient's initial sepsis screen is negative. Risk Assessment: Do you want to hurt yourself or someone else? Patient reports no desire to harm self or others. Onset of symptoms was April 01, 2020. 23:38 Method Of Arrival: Ambulatory bb 23:38 Acuity: BILL 3 bb Historical: - Allergies: 23:50 Codeine; bb 23:50 Methotrexate; bb 23:50 Remicade; bb 23:50 Sulfa (Sulfonamide Antibiotics); bb 23:50 Lyrica; bb - Home Meds: 23:50 Valium 5 mg oral tab 1 tab daily [Active]; cyclobenzaprine 10 mg Oral tab 1 tab 2 times bb per day [Active]; Sumatriptan Sub-Q [Active]; Nucynta 50 mg oral tab 1 tab twice a day [Active]; Lyrica Oral [Active]; estradiol transdermal transdermal [Active]; pregabalin 75 mg Oral 2 times per day [Active]; naproxen 500 mg oral tab 1 tab every 12 hours [Active]; quetiapine oral oral [Active]; mirtazapine 15 mg Oral TbDL 1 tab three times a day [Active]; hydroxychloroquine 200 mg oral tab 1 tab 2 times per day [Active]; omeprazole 20 mg Oral cpDR 1 cap once daily [Active]; folic acid 800 mcg Oral tab 2 tab once daily [Active]; Restasis 0.05 % ophthalmic dpet 1 drop 2 times per day [Active]; hydrocodone-acetaminophen 7.5-325 mg Oral tab 1 tab every 6 hours [Active]; - PMHx: 23:50 Anxiety; Bipolar disorder; Lupus; osteo arthritus; RA; bb - PSHx: 23:50 Cholecystectomy; Hysterectomy; breast augmentation; left ankle; Tonsillectomy; back bb surgery; - Immunization history:: Adult Immunizations up to date. - Social history:: Smoking status: Patient/guardian denies using tobacco, but has a distant history of tobacco abuse. Screenin/29 01:00 Abuse screen: Denies threats or abuse. Nutritional screening: No deficits noted. ea Tuberculosis screening: No symptoms or risk factors identified. Fall Risk None identified. Assessment: 01:00 General: Appears in no apparent distress. Behavior is calm, cooperative, appropriate ea for age. Pain: Denies pain. Neuro: Level of Consciousness is awake, alert, obeys commands, Oriented to person, place, time, situation. Cardiovascular: Patient's skin is warm and dry. Respiratory: Airway is patent Respiratory effort is even, unlabored, Respiratory pattern is regular, symmetrical. 02:16 Reassessment: Patient and/or family updated on plan of care and expected duration. Pain ea level reassessed. Patient is alert, oriented x 3, equal unlabored respirations, skin warm/dry/pink. Discharge instruction given to patient, verbalized the understanding of instruction. Pt left ED ambulatory tolerating well. Vital Signs: 04/04 23:38 BP 121 / 66; Pulse 82; Resp 16 S; Temp 98.6(O); Pulse Ox 95% on R/A; Weight 66.68 kg bb (R); Height 5 ft. 3 in. (160.02 cm) (R); Pain 6/10; 04/05 01:30 BP 107 / 70; Pulse 70; Resp 18; Pulse Ox 98% ; ea 04/04 23:38 Body Mass Index 26.04 (66.68 kg, 160.02 cm) bb ED Course: 04/04 23:05 Patient arrived in ED. cl3 23:17 Halina Dillon FNP-C is PHCP. kb 23:17 Lucien Wolf MD is Attending Physician. kb 23:40 Triage completed. bb 23:50 Christoph Flores RN is Primary Nurse. rr5 23:50 Arm band placed on Patient placed in an exam room, on a stretcher, on pulse oximetry. bb 04/05 00:09 Chest Single View XRAY In Process Unspecified. EDMS 00:45 Ankle Left 3 View XRAY In Process Unspecified. EDMS 01:00 Patient has correct armband on for positive identification. Bed in low position. Call ea light in reach. 01:32 US Extremity Venous Unilateral Ltd In Process Unspecified. EDMS 02:18 No provider procedures requiring assistance completed. Patient did not have IV access ea during this emergency room visit. Administered Medications: No medications were administered Outcome: 01:42 Discharge ordered by . kb 02:18 Discharged to home ambulatory. ea 02:18 Condition: stable 02:18 Discharge instructions given to patient, Instructed on discharge instructions, follow up and referral plans. Demonstrated understanding of instructions, follow-up care. 02:24 Patient left the ED. ea Signatures: Dispatcher [employer] EDHalina Johnson, AALIYAH-C VELVET STEAMER-Katiana Rodríguez, RN RN Rosy North RN RN Christoph Lees RN RN rr5 Nazia Hardy cl3
--- NOTE | 2020-04-05 07:06 | RAD REPORT ---
EXAM DESCRIPTION: US - Extremity Venous Uni Ltd - 04/05/2020 1:31 am CLINICAL HISTORY: Pain;Swelling Preliminary findings provided at the time of the study. COMPARISON: None. TECHNIQUE: Real-time sonographic evaluation of the left lower extremity deep venous system was perfo rmed. FINDINGS: Normal compressibility, flow augmentation, phasic flow and spontaneous flow are identified in the left lower extremity common femoral, superficial femoral, popliteal and posterior tibial vein s. No intraluminal filling defects seen. IMPRESSION: No DVT in the left lower extremity.
--- NOTE | 2020-04-05 09:25 | RAD REPORT ---
EXAM DESCRIPTION: RAD - Chest Single View - 04/05/2020 12:08 am CLINICAL HISTORY: SWELLING, shortness of breath COMPARISON: None TECHNIQUE: AP portable chest image was obtained 04/05/2020 12:08 am . FINDINGS: No peripheral mass or consolidation. No mediastinal or hilar mass or lymphadenopathy seen. Interstitial markings are mildly prominent but suspected to be baseline. Heart and vasculature are normal. No measurable pleural effusion and no pneumothorax. No acute bony abnormality seen. No acute aortic findings suspected. IMPRESSION: No acute cardiopulmonary process.
--- NOTE | 2020-04-05 09:27 | RAD REPORT ---
EXAM DESCRIPTION: RAD - Ankle Left 3 View - 04/05/2020 12:45 am CLINICAL HISTORY: Pain;Swelling, no acute ankle trauma history COMPARISON: No comparisons FINDINGS: No fracture, dislocation or periosteal reaction. No joint effusion seen. Distal fibula rem odeling changes are evident likely from a remote fibular fracture. Subcortical degenerative cystic ch anges seen in the tibial plafond. Overall mild tibiotalar joint space degenerative changes evident. Soft tissues appear mildly edematous. There is lateral soft tissue swelling. No air or foreign body in the soft tissues. IMPRESSION: No acute bone or joint finding identifiable. Tibiotalar joint space degenerative change. Soft tissue swelling with no air or foreign body.
[2020-04-08 19:20] VITALS: BP 121/66; TEMP 98.6; O2SAT 95
== END 2020-04-05 02:24 | disposition home or self-care (01) ==
LOC: ER 23:03
DX: R60.0 Localized edema (principal); F31.9 Bipolar disorder, unspecified; Z98.82 Breast implant status; Z88.2 Allergy status to sulfonamides; Z88.5 Allergy status to narcotic agent; Z88.8 Allergy status to other drugs, medicaments and biological substances
CPT/HCPCS: 71045; 93971; 99283